=== PATIENT | female | born 1950 | race Caucasian/White ===

== ENCOUNTER 2021-04-04 12:05 | Inpatient (IN) ==
[2021-04-04 13:58] LABS: ABS Basophils 0.1 10^3/ul (0-0.2); ABS Lymphocytes 0.5 10^3/ul (1.0-4.8); ABS Monocytes 0.6 10^3/ul (0-0.8); ABS Neutrophils 4.2 10^3/ul (1.5-7.7); Eosinophil % 0.8 %; Hematocrit 39 % (35-47); Hemoglobin 12.6 g/dL (12.0-16.0); Lymphocyte % 9.4 %; Mean Corpuscular HGB Conc 32 g/dL (31-36); Mean Corpuscular Hemoglobin 28 pg (27-31); Mean Corpuscular Volume 87 fL (80-97); Mean Platelet Volume 8.6 fL (7.4-10.4); Nucleated Red Blood Cells % 0.1; Platelet Count 105 10^3/uL (150-450); Red Blood Count 4.49 10^6 /uL (3.70-4.87); Red Cell Distribution Width 16 % (10-15); White Blood Count 5.4 10^3/uL (3.5-10.8)
[2021-04-04 14:20] LABS: Magnesium 2.4 mg/dL (1.9-2.7)
[2021-04-04 14:21] LABS: Troponin I 0.06 ng/mL (<0.03)
[2021-04-04 14:41] LABS: Urine Appearance Cloudy; Urine Bilirubin Negative (Negative); Urine Blood Negative (Negative); Urine Color Amber; Urine Glucose Negative (Negative); Urine Ketones Negative (Negative); Urine Nitrite Negative (Negative); Urine Protein 2+(100 mg/dL) (Negative); Urine Specific Gravity 1.026 (1.002-1.030); Urine Urobilinogen Negative (Negative)
[2021-04-04 14:59] LABS: Urine Bacteria 1+ (Absent); Urine Red Blood Cell Trace(0-2/hpf) (Absent); Urine Squamous Epithelial Cell Present (Absent); Urine White Blood Cell 3+(>20/hpf) (Absent)
[2021-04-04 15:25] LABS: ALT 52 U/L (7-52); AST 47 U/L (13-39); Albumin 3.9 g/dL (3.2-5.2); Albumin/Globulin Ratio 1.3 (1-3); Alkaline Phosphatase 78 U/L (35-149); Anion Gap 10 mmol/L (2-11); Blood Urea Nitrogen 32 mg/dL (6-24); CO2 Carbon Dioxide 21 mmol/L (22-32); Calcium 10.2 mg/dL (8.6-10.3); Chloride 107 mmol/L (101-111); Glucose 123 mg/dL (70-100); Potassium 4.3 mmol/L (3.5-5.0); Sodium 138 mmol/L (135-145); Total Protein 6.9 g/dL (6.4-8.9); eGFR CKD-EPI 60.2 (>60)
[2021-04-04] MEDS ORDERED: Furosemide 20 mg/2 ml IV VIAL IV SLOW PU ONE (16:27)
[2021-04-04 17:16] LABS: Troponin I 0.06 ng/mL (<0.03)
[2021-04-04 20:51] LABS: Troponin I 0.07 ng/mL (<0.03)
[2021-04-04 23:45] LABS: Troponin I 0.06 ng/mL (<0.03)
[2021-04-04] MEDS: Enoxaparin 40 MG/0.4 ML SYR SUBCUT SCH (23:50)
[2021-04-05 06:16] LABS: ABS Basophils 0.1 10^3/ul (0-0.2); ABS Lymphocytes 0.5 10^3/ul (1.0-4.8); ABS Monocytes 0.8 10^3/ul (0-0.8); ABS Neutrophils 5.5 10^3/ul (1.5-7.7); Eosinophil % 0.7 %; Hematocrit 34 % (35-47); Lymphocyte % 7.3 %; Mean Corpuscular HGB Conc 33 g/dL (31-36); Mean Corpuscular Hemoglobin 28 pg (27-31); Mean Corpuscular Volume 85 fL (80-97); Mean Platelet Volume 8.9 fL (7.4-10.4); Platelet Count 103 10^3/uL (150-450); Red Blood Count 3.94 10^6 /uL (3.70-4.87); Red Cell Distribution Width 16 % (10-15); White Blood Count 6.9 10^3/uL (3.5-10.8)
[2021-04-05 06:34] LABS: Calcium 9.1 mg/dL (8.6-10.3); Potassium 3.8 mmol/L (3.5-5.0); eGFR CKD-EPI 45.2 (>60)
[2021-04-05] MEDS: Furosemide 20 mg/2 ml IV VIAL IV SCH (11:13)
[2021-04-05 12:21] LABS: HDL Cholesterol 39.7 mg/dL
[2021-04-05] MEDS: Enoxaparin 40 MG/0.4 ML SYR SUBCUT SCH (18:14)
[2021-04-06 06:14] LABS: ABS Basophils 0.1 10^3/ul (0-0.2); ABS Eosinophils 0.1 10^3/ul (0-0.6); ABS Lymphocytes 0.8 10^3/ul (1.0-4.8); ABS Monocytes 0.6 10^3/ul (0-0.8); ABS Neutrophils 3.1 10^3/ul (1.5-7.7); Eosinophil % 2.6 %; Hematocrit 34 % (35-47); Hemoglobin 10.8 g/dL (12.0-16.0); Lymphocyte % 17.1 %; Mean Corpuscular HGB Conc 32 g/dL (31-36); Mean Corpuscular Hemoglobin 28 pg (27-31); Mean Corpuscular Volume 86 fL (80-97); Mean Platelet Volume 9.2 fL (7.4-10.4); Platelet Count 107 10^3/uL (150-450); Red Blood Count 3.92 10^6 /uL (3.70-4.87); Red Cell Distribution Width 16 % (10-15); White Blood Count 4.7 10^3/uL (3.5-10.8)
[2021-04-06 06:32] LABS: Calcium 8.5 mg/dL (8.6-10.3); Potassium 3.6 mmol/L (3.5-5.0); eGFR CKD-EPI 50.9 (>60)
[2021-04-06] MEDS: Furosemide 20 mg/2 ml IV VIAL IV SCH (08:54)
[2021-04-06 12:02] VITALS: BP 124/78
[2021-04-06 16:20] LABS: Folate > 20.00 ng/mL (5.90-24.80)
== END 2021-04-06 13:35 | disposition home or self-care (01) | DRG 291 ==
LOC: ED 12:05 → SUATTDRO 18:47 → EDHOLD 18:47 → MEDTELE 19:26
PROVIDERS: ADMIT Internal Medicine; ATTEND Internal Medicine